=== PATIENT | female | born 1955 | race Caucasian/White ===

== ENCOUNTER 2020-12-22 15:00 | Observation (INO) | payer OTHER ==
[2020-12-22] MEDS ORDERED: LACTATED RINGERS SOLUTION 1000 ML INFUS.BAG IV ONE (15:24)
[2020-12-22] MEDS ORDERED: ASPIRIN 81 MG CHEWABLE TABLETS PO ONE (15:24)
[2020-12-22] MEDS ORDERED: ASPIRIN 81 MG CHEWABLE TABLETS ONE (16:27)
[2020-12-22 16:33] LABS: BASO % 0.5 % (0-2.0); EOS % 0.2 % (0-4.5); HEMATOCRIT 37.7 % (32.4-45.2); HEMOGLOBIN 12.9 GM/dL (10.7-15.3); LYMPH % 26.4 % (8-40); MCH 30.4 pg (25.7-33.7); MCHC 34.3 g/dl (32.0-36.0); MEAN CELL VOLUME 88.6 fl (80-96); MEAN PLT VOLUME 8.3 fl (7.5-11.1); MONO % 6.9 % (3.8-10.2); PLATELET COUNT 273 10^3/uL (134-434); RBC 4.26 M/mm3 (3.60-5.2); RDW 13.2 % (11.6-15.6); WHITE BLOOD COUNT 5.8 K/mm3 (4.0-10.0)
[2020-12-22 16:41] LABS: CHLORIDE 110 mmol/L (98-107); SODIUM 143 mmol/L (136-145)
[2020-12-22 16:43] LABS: ANION GAP 6 MMOL/L (8-16); BLOOD UREA NITROGEN 20.2 mg/dL (7-18); CALCIUM 9.6 mg/dL (8.5-10.1); CO2 27 mmol/L (21-32); LIPASE 118 U/L (73-393)
[2020-12-22 16:44] LABS: ALBUMIN 4.1 g/dl (3.4-5.0); GLUCOSE,RANDOM 94 mg/dL (74-106)
[2020-12-22 16:46] LABS: CREATININE 0.7 mg/dL (0.55-1.3); SGOT/AST 28 U/L (15-37); SGPT/ALT 28 U/L (13-61)
[2020-12-22 16:48] LABS: BILIRUBIN,TOTAL 0.5 mg/dL (0.2-1)
[2020-12-22 16:49] LABS: ALK PHOS 61 U/L (45-117)
[2020-12-22 17:01] LABS: PH,URINE 6.5 (5.0-8.0); URINE APPEARANCE CLEAR; URINE BILIRUBIN NEGATIVE (NEGATIVE); URINE COLOR YELLOW; URINE GLUCOSE (UA) NEGATIVE (NEGATIVE); URINE KETONE NEGATIVE (NEGATIVE); URINE LEUK ESTERASE NEGATIVE (NEGATIVE); URINE NITRITE NEGATIVE (NEGATIVE); URINE PROTEIN NEGATIVE (NEGATIVE); URINE UROBILINOGEN 0.2 mg/dL (0.2-1.0)
[2020-12-22] MEDS ORDERED: ONDANSETRON 4 MG/2 ML VIAL IVPUSH ONE (19:33)
[2020-12-22] MEDS ORDERED: ONDANSETRON 4 MG/2 ML VIAL ONE (19:34)
[2020-12-23] MEDS ORDERED: morphine CARPU-JECT 2 MG/1 ML DISP.SYRIN IVPUSH ONE (04:17)
[2020-12-23] MEDS ORDERED: morphine SULFATE 4 MG/ML VIAL ONE (04:49)
[2020-12-23] MEDS ORDERED: morphine SULFATE 4 MG/ML VIAL IVPUSH ONE (05:00)
[2020-12-23 06:45] LABS: BASO % 0.6 % (0-2.0); EOS % 1.5 % (0-4.5); HEMATOCRIT 36.4 % (32.4-45.2); HEMOGLOBIN 12.3 GM/dL (10.7-15.3); LYMPH % 43.6 % (8-40); MCH 30.2 pg (25.7-33.7); MCHC 33.8 g/dl (32.0-36.0); MEAN CELL VOLUME 89.4 fl (80-96); MONO % 8.4 % (3.8-10.2); NEUT % 45.9 % (42.8-82.8); PLATELET COUNT 292 10^3/uL (134-434); RBC 4.07 M/mm3 (3.60-5.2); RDW 13.1 % (11.6-15.6); WHITE BLOOD COUNT 5.4 K/mm3 (4.0-10.0)
[2020-12-23 06:50] LABS: CHLORIDE 108 mmol/L (98-107); SODIUM 140 mmol/L (136-145)
[2020-12-23 06:58] LABS: ALBUMIN 3.6 g/dl (3.4-5.0); ANION GAP 4 MMOL/L (8-16); CO2 29 mmol/L (21-32); GLUCOSE,RANDOM 96 mg/dL (74-106)
[2020-12-23 06:59] LABS: BILIRUBIN,TOTAL 0.7 mg/dL (0.2-1); BLOOD UREA NITROGEN 16.8 mg/dL (7-18); MAGNESIUM 2.2 mg/dL (1.8-2.4)
[2020-12-23 07:00] LABS: ALK PHOS 54 U/L (45-117)
[2020-12-23 07:01] LABS: CHOLESTEROL 194 mg/dL (50-200); HDL CHOLESTEROL 80 mg/dL (40-60); SGPT/ALT 24 U/L (13-61)
[2020-12-23 07:02] LABS: CREATININE 0.8 mg/dL (0.55-1.3); SGOT/AST 17 U/L (15-37); TRIGLYCERIDES 114 mg/dL (0-150)
[2020-12-23 07:03] LABS: LDL CHOLESTEROL (ONLY SJRH) 89 mg/dL (5-100)
[2020-12-23] MEDS ORDERED: CEFTRIAXONE 1 GM in DEXTROSE 5%-WATER - 50 ML IVPB ONE (10:51)
[2020-12-23] MEDS ORDERED: ASPIRIN 81 MG CHEWABLE TABLETS ONE (12:18)
[2020-12-23] MEDS ORDERED: CEFTRIAXONE 1 GM/50 ML BAG ONE (12:19)
[2020-12-23] MEDS: ASPIRIN 81 MG CHEWABLE TABLETS PO SCH (12:22)
[2020-12-23] MEDS: DEXTROSE 5%-0.45% SALINE 1,000 ML IV SCH ×2 (12:32→20:28)
[2020-12-23] MEDS: ATORVASTATIN CA 10 MG TABLET (FP) PO SCH (21:08)
[2020-12-23 22:44] VITALS: BMI 18.6
[2020-12-23] MEDS ORDERED: ACETAMINOPHEN 325 MG TABLET (FP) PO ONE (23:09)
[2020-12-24] MEDS ORDERED: DEXTROSE 5%-WATER - 50 ML IVPB ONE (09:02)
[2020-12-24] MEDS ORDERED: cefTRIAXone SODIUM 1 GM VIAL ONE (09:02)
[2020-12-24] MEDS: CEFTRIAXONE 1 GM in DEXTROSE 5%-WATER - 50 ML IVPB SCH (09:14)
[2020-12-24] MEDS: PANTOPRAZOLE 20 MG TABLET PO SCH (09:15)
[2020-12-24] MEDS: ASPIRIN 81 MG CHEWABLE TABLETS PO SCH (09:15)
[2020-12-24] MEDS ORDERED: FLU VACC QS2021-22(6MOS UP)/PF 60 MCG/0.5 ML SYRINGE IM ONE (10:00)
[2020-12-24] MEDS ORDERED: PNEUMOC 13-VAL CONJ-DIP CRM/PF 0.5 ML DISP.SYRIN IM ONE (10:00)
[2020-12-24] MEDS ORDERED: LISINOPRIL 20 MG TABLET PO ONE (11:38)
[2020-12-24] MEDS: amLODIPine BESYLATE 5 MG TABLET (FP) PO SCH (11:58)
[2020-12-24 12:45] LABS: SODIUM 141 mmol/L (136-145)
[2020-12-24 12:47] LABS: CALCIUM 9.4 mg/dL (8.5-10.1); CO2 23 mmol/L (21-32)
[2020-12-24 12:48] LABS: GLUCOSE,RANDOM 110 mg/dL (74-106)
[2020-12-24 12:53] LABS: ANION GAP 8 MMOL/L (8-16); BLOOD UREA NITROGEN 9.3 mg/dL (7-18); CHLORIDE 110 mmol/L (98-107); CREATININE 0.7 mg/dL (0.55-1.3)
[2020-12-24] MEDS: DEXTROSE 5%-0.45% SALINE 1,000 ML IV SCH (17:44)
[2020-12-24] MEDS: ATORVASTATIN CA 10 MG TABLET (FP) PO SCH (21:13)
[2020-12-24] MEDS ORDERED: ACETAMINOPHEN/CAFFEINE/BUTALBITAL 1 TAB PO ONE (22:31)
[2020-12-25] MEDS ORDERED: cefTRIAXone SODIUM 1 GM VIAL ONE (09:17)
[2020-12-25] MEDS ORDERED: DEXTROSE 5%-WATER - 50 ML IVPB ONE (09:17)
[2020-12-25] MEDS ORDERED: LISINOPRIL 10 MG TABLET PO SCH (10:00)
[2020-12-25] MEDS ORDERED: DIVALPROEX SODIUM 250 MG TABLET E.C. PO SCH (10:00)
[2020-12-25] MEDS: PANTOPRAZOLE 20 MG TABLET PO SCH (10:23)
[2020-12-25] MEDS: ASPIRIN 81 MG CHEWABLE TABLETS PO SCH (10:23)
[2020-12-25] MEDS: amLODIPine BESYLATE 5 MG TABLET (FP) PO SCH (10:23)
[2020-12-25] MEDS: CEFTRIAXONE 1 GM in DEXTROSE 5%-WATER - 50 ML IVPB SCH (10:24)
[2020-12-25] MEDS ORDERED: PT OWN MED DRAWER 7, Y5N ONE (10:26)
[2020-12-25 15:43] VITALS: BP 127/64; PULSE 63; TEMP 98.1
== END 2020-12-25 17:43 | disposition home or self-care (01) ==
LOC: JER 15:00 → JERBED 19:03 → INTOOBSV 19:03 → J4W 12-23 20:06 → UNDODISOB 12-24 19:32
PROVIDERS: ADMIT Internal Medicine; ATTEND Family Medicine
PROC: 3E03329 Introduction of Other Anti-infective into Peripheral Vein, Percutaneous Approach (ICD-10-PCS; principal; 2020-12-22)
PROC: 3E033NZ Introduction of Analgesics, Hypnotics, Sedatives into Peripheral Vein, Percutaneous Approach (ICD-10-PCS; 2020-12-22)
PROC: 3E02340 Introduction of Influenza Vaccine into Muscle, Percutaneous Approach (ICD-10-PCS; 2020-12-22)
PROC: 3E02340 Introduction of Influenza Vaccine into Muscle, Percutaneous Approach (ICD-10-PCS; 2020-12-22)
DX: R07.89 Other chest pain (principal); I10 Essential (primary) hypertension; E78.5 Hyperlipidemia, unspecified; F03.90 Unspecified dementia, unspecified severity, without behavioral disturbance, psychotic disturbance, mood disturbance, and anxiety; Z20.822 Contact with and (suspected) exposure to COVID-19; K57.92 Diverticulitis of intestine, part unspecified, without perforation or abscess without bleeding; M79.602 Pain in left arm; G43.909 Migraine, unspecified, not intractable, without status migrainosus; G25.81 Restless legs syndrome
CPT/HCPCS: 36415; 70450-TC; 71046-TC-FY; 74177-TC; 80048; 80053; 80061; 81003; 82550; 82553; 83690; 83735; 84443; 84484; 85025; 86140; 87086; 90670; 90686; 93005; 93010; 96365; 96375; 99285-25; C9803; G0008; G0009; G0378; Q9967; U0003; U0005